=== PATIENT | female | born 1975 | race American Indian/Alaskan Native ===

== ENCOUNTER 2017-04-12 14:10 | Observation (INO) | payer BC, MEDICAID ==
[2017-04-12 14:32] VITALS: BMI 28.7
--- NOTE | 2017-04-12 14:49 | ED PDOC ---
Arrival/HPI - General Chief Complaint: Dizziness/Lightheaded Time Seen by Provider: 04/12/17 14:40 - History of Present Illness Narrative History of Present Illness (Text): 41 y/o F c PMHx iron deficiency anemia p/w weakness x weeks. Patient states she has felt lightheaded and weak with "slowness" of vision. She states the symptoms worsened after her normal menstrual period last week. She denies any other bleeding, black stool, or vomiting. She denies pain, fever, dyspnea. She had a blood transfusion in the past about 2 years ago. She denies any spinning or room spinning sensation. Past Medical History - Infectious Disease Hx of Infectious Diseases: None - Past Medical History Past Medical History: No Previous - Cardiac Hx Cardiac Disorders: No - Pulmonary Hx Respiratory Disorders: No Hx Pulmonary Embolism: Yes - Neurological Hx Neurological Disorder: Yes Hx Vertigo: Yes - Hematological/Oncological Hx Anemia: Yes - Psychiatric Hx Psychophysiologic Disorder: No Hx Substance Use: Yes (Marijuana) - Past Surgical History Past Surgical History: No Previous - Anesthesia Hx Anesthesia: No - Suicidal Assessment Feels Threatened In Home Enviroment: No Family/Social History - Physician Review Nursing Documentation Reviewed: Yes Family/Social History: No Known Family HX Smoking Status: Current Some Days Smoker Hx Alcohol Use: No Hx Substance Use: Yes (Marijuana) Hx Substance Use Treatment: No Allergies/Home Meds Allergies/Adverse Reactions: Allergies iodine Allergy (Verified 04/12/17 14:39) NAUSEA Home Medications: Home Meds Medication Instructions Recorded Confirmed No Known Home Med 04/12/17 04/12/17 Review of Systems - Physician Review All systems were reviewed & negative as marked: Yes - Review of Systems Constitutional: absent: Fevers Respiratory: absent: SOB Cardiovascular: absent: Chest Pain Physical Exam - Physical Exam Narrative Physical Exam (Text): Constitutional: No acute distress. Head: Normocephalic. Atraumatic. Eyes: PERRL. ENT: Moist mucous membranes. Neck: Supple. Cardiovascular: Regular rate. Radial pulses 2+ bilaterally. Capillary refill < 2 seconds. Chest: No tenderness. Respiratory: Clear to auscultation bilaterally. GI: Soft. Nontender. Nondistended. Back: No CVA tenderness. Musculoskeletal: No swelling or tenderness. Skin: No rash. (Partner states "a little pale") Neurologic: Alert, no focal deficit. Vital Signs Temp Pulse Resp BP Pulse Ox 04/12/17 14:10 98.7 F 67 18 115/81 99 Medical Decision Making ED Course and Treatment: Likely anemia, will check hemoglobin. Patient with history of iron deficiency anemia, will require follow up with her PMD for further management. 04/12/17 16:32 Patient consented for blood transfusion. Requires transfusion due to symptomatic anemia. Dr. Barakat accepts patient to hospitalist service under observation. - Lab Interpretations Lab Results: 04/12/17 14:35 04/12/17 14:35 Lab Results 04/12/17 15:42: Blood Type A POSITIVE, Antibody Screen Negative, BBK History Checked No verified bt 04/12/17 15:42: Urine Color Light yellow, Urine Appearance Clear, Urine pH 8.0, Ur Specific [place] 1.020, Urine Protein Negative, Urine Glucose (UA) Negative, Urine Ketones Negative, Urine Blood Negative, Urine Nitrate Negative, Urine Bilirubin Negative, Urine Urobilinogen 1.0 H, Ur Leukocyte Esterase Negative, Urine HCG, Qual Negative 04/12/17 14:35: Beta HCG, Quant < 2.39 04/12/17 14:35: Sodium 138, Potassium 4.0, Chloride 106, Carbon Dioxide 28, Anion Gap 8 L, BUN 14, Creatinine 0.7, Est GFR ( Amer) > 60, Est GFR (Non -Af Amer) > 60, Random Glucose 81, Calcium 8.6, Total Bilirubin 0.4, AST 30, ALT 28, Alkaline Phosphatase 49, Total Protein 6.9, Albumin 3.6, Globulin 3.3, Albumin/Globulin Ratio 1.1 04/12/17 14:35: PT 11.5, INR 1.06, APTT 24.3 04/12/17 14:35: WBC 5.6, RBC 3.83, Hgb 7.3 L, Hct 26.2 L, MCV 68.4 L, MCH 19.1 L , MCHC 27.9 L, RDW 18.7 H, Plt Count 363, MPV 9.1, Gran % 57.5, Lymph % (Auto) 32.2, [place] % (Auto) 8.6 H, Eos % (Auto) 1.3 L, Baso % (Auto) 0.4, Gran # 3.22, Lymph # 1.8, Rush # 0.5, Eos # 0.1, Baso # 0.02 Disposition/Present on Arrival - Present on Arrival Any Indicators Present on Arrival: No History of DVT/PE: No History of Uncontrolled Diabetes: No Urinary Catheter: No History of Decub. Ulcer: No History Surgical Site Infection Following: None - Disposition Have Diagnosis and Disposition been Completed?: Yes Diagnosis: Symptomatic anemia Disposition: HOSPITALIZED Disposition Time: 16:32 Patient Plan: Observation Condition: STABLE
[2017-04-12 15:23] LABS: ADD MANUAL DIFF? NO
[2017-04-12 15:42] LABS: ALB/GLOB RATIO 1.1 (1.1-1.8); ALKALINE PHOSPHATASE 49 U/L (38-133); ALT/SGPT 28 U/L (7-56); AST/SGOT 30 U/L (15-39); BASO # 0.02 K/mm3 (0.0-2.0); BASO % 0.4 % (0.0-3.0); BILIRUBIN,TOTAL 0.4 mg/dL (0.2-1.3); BLOOD UREA NITROGEN 14 mg/dL (7-21); CALCIUM 8.6 mg/dL (8.4-10.5); CARBON DIOXIDE 28 mmol/L (21-33); CHLORIDE 106 mmol/L (98-107); EOS # 0.1 (0.0-0.7); EOS % 1.3 % (1.5-5.0); GFR AFRICAN-AMERICAN > 60; GLUCOSE,RANDOM 81 mg/dL (70-110); GRAN # 3.22 (1.4-6.5); GRAN % 57.5 % (50.0-68.0); HEMATOCRIT 26.2 % (36.0-48.0); INR 1.06 (0.93-1.08); LYMPH # 1.8 (1.2-3.4); LYMPH % 32.2 % (22.0-35.0); MEAN CELL VOLUME 68.4 fL (80.0-105.0); MEAN CORPUSCULAR HEMOGLOBIN 19.1 pg (25.0-35.0); MEAN CORPUSCULAR HGB CONC 27.9 g/dl (31.0-37.0); MEAN PLATELET VOLUME 9.1 fl (7.0-11.0); MONO # 0.5 (0.1-0.6); MONO % 8.6 % (1.0-6.0); PARTIAL THROMBOPLASTIN TIME 24.3 Seconds (23.7-30.8); PLATELET COUNT 363 10^3/uL (120.0-450.0); RED CELL DISTRIBUTION WIDTH 18.7 % (11.5-14.5); SODIUM 138 mmol/L (132-148); TOTAL PROTEIN 6.9 g/dL (5.8-8.3); WHITE BLOOD COUNT 5.6 10^3/ul (4.5-11.0)
[2017-04-12 15:53] LABS: URINE APPEARANCE CLEAR (CLEAR); URINE BILIRUBIN NEGATIVE (NEGATIVE); URINE BLOOD NEGATIVE (NEGATIVE); URINE COLOR LIGHT YELLOW (YELLOW); URINE GLUCOSE (UA) NEGATIVE (NEGATIVE); URINE KETONE NEGATIVE (NEGATIVE); URINE LEUKOCYTE ESTERASE NEGATIVE Leu/uL (NEGATIVE); URINE PROTEIN NEGATIVE mg/dL (<30 mg/dL)
--- NOTE | 2017-04-12 18:22 | CP.PCM.HP ---
<Shakira Strong - Last Filed: 04/12/17 18:16> History of Present Illness - History of Present Illness History of Present Illness: CC: lightheadedness and weakness 41 year old female with past medical history of irono deficiency anemia and PE in 2002 treated with anticoags for about 2 months presents with lightheadedness and, HAN and SOB that began yesterday. Patient states that she has history of lightheadedness but last night she felt worse. Patient denies having any N/V, fevers or chills. Patient states that in the past she used to receive iron transfusions and used to take iron supplements but does not anymore. Patient states that she occasionally has heavy menstrual periods. LMP was on 04/04 and lasted about 5 days. Her period was 1 week early. Normally she gets periods every 28 days and last about 5-7 days. Patient is with a miscarriage about 2 years ago. Her 1st was uneventful and was vaginal delivery. Unsure about STD history. Patient had PE in past. She states that she was told it was due to taking OCPs. She denied smoking at that time. She denies having any CP, SOB abd pain, N/V/d/C, dysuria, hematuria, blood in stool, f/c. PMHx: stated above Sx: lap band Allergies: iodine contrast (nausea) Social: Denies tobacco or drug use. Drink ETOH occasionally Meds: none Present on Admission - Present on Admission Any Indicators Present on Admission: Yes History of DVT/PE: Yes Review of Systems - Review of Systems All systems: reviewed and no additional remarkable complaints except Past Patient History - Infectious Disease Hx of Infectious Diseases: None - Past Social History Smoking Status: Current Some Days Smoker Alcohol: Occasional Drugs: Denies Home Situation {Lives}: With Family - CARDIAC Hx Cardiac Disorders: No - PULMONARY Hx Respiratory Disorders: No Hx Pulmonary Embolism: Yes - NEUROLOGICAL Hx Neurological Disorder: Yes Hx Vertigo: Yes - HEMATOLOGICAL/ONCOLOGICAL Hx Anemia: Yes - PSYCHIATRIC Hx Psychophysiologic Disorder: No Hx Substance Use: Yes (Marijuana) - SURGICAL HISTORY Hx Surgeries: No - ANESTHESIA Hx Anesthesia: No Meds Allergies/Adverse Reactions: Allergies Allergy/AdvReac Type Severity Reaction Status Date / Time iodine Allergy NAUSEA Verified 04/12/17 14:39 Physical Exam - Constitutional Appears: Non-toxic, No Acute Distress - Head Exam Head Exam: ATRAUMATIC - Eye Exam Eye Exam: EOMI - ENT Exam ENT Exam: Mucous Membranes Moist - Respiratory Exam Respiratory Exam: Clear to Auscultation Bilateral, NORMAL BREATHING PATTERN. absent: Accessory Muscle Use, Rales, Rhonchi, Wheezes, Respiratory Distress - Cardiovascular Exam Cardiovascular Exam: REGULAR RHYTHM, +S1, +S2. absent: Diastolic murmur, Gallop , Rubs, Systolic Murmur - GI/Abdominal Exam GI & Abdominal Exam: Normal Bowel Sounds, Soft. absent: Distended, Firm, Guarding, Rigid, Tenderness - Extremities Exam Extremities exam: Negative for: pedal edema, tenderness - Neurological Exam Neurological exam: Alert, Oriented x3 - Psychiatric Exam Psychiatric exam: Normal Affect, Normal Mood - Skin Skin Exam: Dry, Intact, Normal Color, Warm Results - Vital Signs Recent Vital Signs: Last Vital Signs Temp 98.7 F 04/12/17 14:10 Pulse 67 04/12/17 14:10 Resp 18 04/12/17 14:10 BP 115/81 04/12/17 14:10 Pulse Ox 99 04/12/17 14:10 - Labs Result Diagrams: 04/12/17 14:35 04/12/17 14:35 Labs: Laboratory Results - last 24 hr 04/12/17 16:56 Blood Type Confirm A POSITIVE Assessment & Plan - Assessment and Plan (Free Text) Assessment: 41 year old female with past medical history of iron deficiency anemia and PE in 2002 is admitted for symptomatic anemia. On blood work, hgb is 7.3, MCV is 68.4. Symptomatic microcytic anemia - Will order iron studies, vit b12 and folate - Received consent for transfusion from pt. - Will transfuse 2 units of PRBC - Will get CXR - Will repeat CBC in am - Will check orthostatic vital signs - will get CT scan and transvag US to r/o any pelvic or intra-abd Prophylaxis -pepcid -scds Case discussed with attending, Dr. Barakat - Date & Time Date: 04/12/17 Time: 18:24 <Piot Barakat - Last Filed: 04/13/17 06:57> Results - Vital Signs Recent Vital Signs: Last Vital Signs Temp 98.5 F 04/13/17 02:09 Pulse 59 L 04/13/17 02:09 Resp 20 04/13/17 02:09 BP 124/89 04/13/17 02:09 Pulse Ox 99 04/12/17 14:10 - Labs Result Diagrams: 04/12/17 14:35 04/12/17 14:35 Labs: Laboratory Results - last 24 hr 04/12/17 16:56 Blood Type Confirm A POSITIVE Attending/Attestation - Attestation I have personally seen and examined this patient.: Yes I have fully participated in the care of the patient.: Yes I have reviewed all pertinent clinical information: Yes Notes (Text): 04/12/17 41 year old female with past medical history of chronic iron deficiency anemia with history of heavy menses at times presents with dizziness and dyspnea likely secondary to symptomatic anemia. Also complains of mild lower abdominal pain which she relates to history of fibroids. She was found to have microcytic anemia with hemoglobin of 7.3. Will order for anemia workup and prbc transfusion. CT abd/pelvis and transvaginal US are also ordered. Orthostatics and CXR were also requested. Pito Barakat MD Hospitalist.
[2017-04-12] MEDS ORDERED: Pneumococcal 23-Valent Vaccine IM ONE (19:58)
[2017-04-13] MEDS ORDERED: Pantoprazole 40 mg EC Tab PO SCH (06:30)
[2017-04-13 10:32] LABS: HEMATOCRIT 32.4 % (36.0-48.0); MEAN CELL VOLUME 70.3 fL (80.0-105.0); MEAN CORPUSCULAR HEMOGLOBIN 20.4 pg (25.0-35.0); MEAN PLATELET VOLUME 8.9 fl (7.0-11.0); RED CELL DISTRIBUTION WIDTH 19.7 % (11.5-14.5); WHITE BLOOD COUNT 5.7 10^3/ul (4.5-11.0)
--- NOTE | 2017-04-13 10:38 | RAD ---
HISTORY: dyspnea COMPARISON: No prior. FINDINGS: LUNGS: No active pulmonary disease. PLEURA: No significant pleural effusion identified, no pneumothorax apparent. CARDIOVASCULAR: Normal. OSSEOUS STRUCTURES: No significant abnormalities. VISUALIZED UPPER ABDOMEN: Normal. OTHER FINDINGS: None. IMPRESSION: No active disease.
[2017-04-13 10:47] LABS: BLOOD UREA NITROGEN 14 mg/dL (7-21); CALCIUM 8.7 mg/dL (8.4-10.5); CARBON DIOXIDE 25 mmol/L (21-33); CHLORIDE 105 mmol/L (95-110); GFR AFRICAN-AMERICAN > 60; GLUCOSE,RANDOM 110 mg/dL (70-110); POTASSIUM 3.7 mmol/L (3.6-5.0); SODIUM 138 mmol/L (132-148)
[2017-04-13 10:56] LABS: IRON 57 ug/dL (45-180)
[2017-04-13 12:00] LABS: IRON 18 ug/dL (45-180)
--- NOTE | 2017-04-13 15:01 | US ---
PROCEDURE: HISTORY: RLQ pain COMPARISON: TECHNIQUE: FINDINGS: The uterus measures 11.4 x 8.0 x 8.4 centimeters. Endometrium measures 4 millimeters. There is an anterior leiomyoma measuring 5.7 centimeters. The right ovary measures 3.4 x 3.2 centimeters. Left measures 3.8 x 2.8 centimeters. There is a 1.7 centimeter internal follicle. There is no free fluid the pelvis. Impression anterior leiomyoma otherwise unremarkable pelvic ultrasound. IMPRESSION:
--- NOTE | 2017-04-13 15:32 | CT ---
PROCEDURE: CT Abdomen and Pelvis without intravenous contrast HISTORY: RLQ pain COMPARISON: None. TECHNIQUE: Without contrast.. Contrast Dose: Radiation dose: Total exam DLP = 536 mGy-cm. This CT exam was performed using one or more of the following dose reduction techniques: Automated exposure control, adjustment of the mA and/or kV according to patient size, and/or use of iterative reconstruction technique. FINDINGS: LOWER THORAX: Multiple suture lines are seen in the stomach. LIVER: Unremarkable. No gross lesion or ductal dilatation. GALLBLADDER AND BILE DUCTS: Unremarkable. PANCREAS: Unremarkable. No gross lesion or ductal dilatation. SPLEEN: Unremarkable. ADRENALS: Unremarkable. No mass. KIDNEYS AND URETERS: Unremarkable. No hydronephrosis. No solid mass. VASCULATURE: Unremarkable. No aortic aneurysm. BOWEL: Unremarkable. No obstruction. No gross mural thickening. APPENDIX: Unremarkable. Normal appendix. PERITONEUM: Unremarkable. No free fluid. No free air. LYMPH NODES: Unremarkable. No enlarged lymph nodes. BLADDER: Unremarkable. REPRODUCTIVE: Unremarkable. BONES: No acute fracture. OTHER FINDINGS: None. IMPRESSION: No acute finding
[2017-04-13 17:26] LABS: FOLATE > 20.0 ng/mL
[2017-04-13 18:30] VITALS: BP 123/73; PULSE 67; RESP 20; TEMP 97.7; O2SAT 95
--- NOTE | 2017-04-13 19:53 | CP.PCM.DIS ---
<Mick Dang - Last Filed: 04/18/17 16:36> Provider - Provider Date of Admission: 04/12/17 16:41 Attending physician: Pito Barakat MD Time Spent in preparation of Discharge (in minutes): 45 Hospital Course - Lab Results Lab Results: Most Recent Lab Values WBC 5.7 10^3/ul (4.5-11.0) 04/13/17 10:10 RBC 4.61 10^6/uL (3.5-6.1) 04/13/17 10:10 Hgb 9.4 gm/dL (12.0-16.0) L 04/13/17 10:10 Hct 32.4 % (36.0-48.0) L 04/13/17 10:10 MCV 70.3 fL (80.0-105.0) L 04/13/17 10:10 MCH 20.4 pg (25.0-35.0) L 04/13/17 10:10 MCHC 29.0 g/dl (31.0-37.0) L 04/13/17 10:10 RDW 19.7 % (11.5-14.5) H 04/13/17 10:10 Plt Count 338 10^3/uL (120.0-450.0) 04/13/17 10:10 MPV 8.9 fl (7.0-11.0) 04/13/17 10:10 Gran % 57.5 % (50.0-68.0) 04/12/17 14:35 Lymph % (Auto) 32.2 % (22.0-35.0) 04/12/17 14:35 Petroleum % (Auto) 8.6 % (1.0-6.0) H 04/12/17 14:35 Eos % (Auto) 1.3 % (1.5-5.0) L 04/12/17 14:35 Baso % (Auto) 0.4 % (0.0-3.0) 04/12/17 14:35 Gran # 3.22 (1.4-6.5) 04/12/17 14:35 Lymph # 1.8 (1.2-3.4) 04/12/17 14:35 Petroleum # 0.5 (0.1-0.6) 04/12/17 14:35 Eos # 0.1 (0.0-0.7) 04/12/17 14:35 Baso # 0.02 K/mm3 (0.0-2.0) 04/12/17 14:35 PT 11.5 Seconds (9.9-11.8) 04/12/17 14:35 INR 1.06 (0.93-1.08) 04/12/17 14:35 APTT 24.3 Seconds (23.7-30.8) 04/12/17 14:35 Sodium 138 mmol/L (132-148) 04/13/17 10:10 Potassium 3.7 mmol/L (3.6-5.0) 04/13/17 10:10 Chloride 105 mmol/L (95-110) 04/13/17 10:10 Carbon Dioxide 25 mmol/L (21-33) 04/13/17 10:10 Anion Gap 12 (10-20) 04/13/17 10:10 BUN 14 mg/dL (7-21) 04/13/17 10:10 Creatinine 0.7 mg/dL (0.5-1.4) 04/13/17 10:10 Est GFR ( Amer) > 60 04/13/17 10:10 Est GFR (Non-Af Amer) > 60 04/13/17 10:10 Random Glucose 110 mg/dL (70-110) 04/13/17 10:10 Calcium 8.7 mg/dL (8.4-10.5) 04/13/17 10:10 Iron 57 ug/dL (45-180) 04/13/17 10:10 TIBC 486 ug/dL (265-497) 04/13/17 10:10 % Saturation 12 % (20-55) L 04/13/17 10:10 Ferritin 5.1 ng/mL 04/13/17 10:10 Total Bilirubin 0.4 mg/dL (0.2-1.3) 04/12/17 14:35 AST 30 U/L (15-39) 04/12/17 14:35 ALT 28 U/L (7-56) 04/12/17 14:35 Alkaline Phosphatase 49 U/L (38-133) 04/12/17 14:35 Total Protein 6.9 g/dL (5.8-8.3) 04/12/17 14:35 Albumin 3.6 g/dL (3.0-4.8) 04/12/17 14:35 Globulin 3.3 gm/dL 04/12/17 14:35 Albumin/Globulin Ratio 1.1 (1.1-1.8) 04/12/17 14:35 Vitamin B12 229 pg/mL (239-931) L 04/13/17 10:10 Folate 10.0 ng/mL 04/13/17 10:10 Beta HCG, Quant < 2.39 mIU/mL (0-6.15) 04/12/17 14:35 Urine Color Light yellow (YELLOW) 04/12/17 15:42 Urine Appearance Clear (CLEAR) 04/12/17 15:42 Urine pH 8.0 (4.7-8.0) 04/12/17 15:42 Ur Specific [place] 1.020 (1.005-1.035) 04/12/17 15:42 Urine Protein Negative mg/dL (<30 mg/dL) 04/12/17 15:42 Urine Glucose (UA) Negative mg/dL (NEGATIVE) 04/12/17 15:42 Urine Ketones Negative mg/dL (NEGATIVE) 04/12/17 15:42 Urine Blood Negative (NEGATIVE) 04/12/17 15:42 Urine Nitrate Negative (NEGATIVE) 04/12/17 15:42 Urine Bilirubin Negative (NEGATIVE) 04/12/17 15:42 Urine Urobilinogen 1.0 E.U./dL (<1 E.U./dL) H 04/12/17 15:42 Ur Leukocyte Esterase Negative Ashwini/uL (NEGATIVE) 04/12/17 15:42 Urine HCG, Qual Negative (NEGATIVE) 04/12/17 15:42 Blood Type A POSITIVE 04/12/17 15:42 Blood Type Confirm A POSITIVE 04/12/17 16:56 Antibody Screen Negative 04/12/17 15:42 Crossmatch See Detail 04/12/17 15:42 BBK History Checked No verified bt 04/12/17 15:42 - Hospital Course Hospital Course: Upon Admission: 41yo F with PMHx of Iron-Deficiency Anemia, PE in 2002, here for evaluation of lightheadedness, Headache, SOB. She states that she normally has regular periods with occasional heavy periods. LMP was 5/17, lasted for 5 days, was 1 week early and heavier than usual. She also c/o mild lower abdominal pain. CT abd/pelvis was obtained, no acute findings were founds. Transvaginal US obtained which showed 5.7cm anterior leiomyoma. Patient was found to have microcytic anemia with Hb of 7.3. Patient was given 2U PRBCs and started on iron supplements. Patient's status improved, and patient was cleared to be discharged home with close out-patient follow up with her PMD. Patient understands and agrees with plan. 1. Symptomatic anemia; received 2U prbc; secondary to heavy menses; Iron supplements 2. Constipation; Colace prn Upon Discharge: Patient is cleared for discharge as per Dr. Barakat 1. Follow up with your primary care physician within 3 days. 2. Follow up with your geek squad manager within one week. 3. Take new meds as directed 4. Return to the ER with any concerning symptoms. New Prescriptions: Ferrous Sulfate 324mg PO TID #90/0 Colace 100mg PO BID #60/0 Discharge Exam - Head Exam Head Exam: ATRAUMATIC, NORMAL INSPECTION, NORMOCEPHALIC - Eye Exam Eye Exam: EOMI, Normal appearance, PERRL. absent: Scleral icterus Pupil Exam: PERRL - ENT Exam ENT Exam: Mucous Membranes Moist - Respiratory Exam Respiratory Exam: Clear to PA & Lateral, NORMAL BREATHING PATTERN, UNREMARKABLE. absent: Accessory Muscle Use, Decreased Breath Sounds, Rhonchi, Wheezes, Respiratory Distress - Cardiovascular Exam Cardiovascular Exam: RRR, +S1, +S2. absent: JVD - GI/Abdominal Exam GI & Abdominal Exam: Normal Bowel Sounds, Soft. absent: Distended, Guarding, Hernia, Rebound, Rigid, Tenderness - Extremities Exam Extremities exam: normal inspection - Back Exam Back exam: NORMAL INSPECTION - Neurological Exam Neurological exam: Alert, Oriented x3 - Psychiatric Exam Psychiatric exam: Normal Affect, Normal Mood - Skin Skin Exam: Dry, Intact, Normal Color, Warm Discharge Plan - Discharge Medications Prescriptions: Docusate Sodium [Colace] 100 mg PO BID #60 capsule Ferrous Sulfate [Feosol] 324 mg PO TID #90 ect - Follow Up Plan Condition: STABLE Disposition: HOME/ ROUTINE Instructions: Anemia (DC), Back Pain (GEN), Hip Pain (GEN) Additional Instructions: Patient is cleared for discharge as per Dr. Barakat 1. Follow up with your primary care physician within 3 days. 2. Follow up with you geek squad manager within one week. 3. Take new meds as directed 4. Return to the ER with any concerning symptoms. New Prescriptions: Ferrous Sulfate 324mg PO TID #90/0 Colace 100mg PO BID #60/0 <Pito Baraakt - Last Filed: 04/18/17 18:29> Provider - Provider Date of Admission: 04/12/17 16:41 Attending physician: Pito Barakat MD Hospital Course - Lab Results Lab Results: Most Recent Lab Values WBC 5.7 10^3/ul (4.5-11.0) 04/13/17 10:10 RBC 4.61 10^6/uL (3.5-6.1) 04/13/17 10:10 Hgb 9.4 gm/dL (12.0-16.0) L 04/13/17 10:10 Hct 32.4 % (36.0-48.0) L 04/13/17 10:10 MCV 70.3 fL (80.0-105.0) L 04/13/17 10:10 MCH 20.4 pg (25.0-35.0) L 04/13/17 10:10 MCHC 29.0 g/dl (31.0-37.0) L 04/13/17 10:10 RDW 19.7 % (11.5-14.5) H 04/13/17 10:10 Plt Count 338 10^3/uL (120.0-450.0) 04/13/17 10:10 MPV 8.9 fl (7.0-11.0) 04/13/17 10:10 Gran % 57.5 % (50.0-68.0) 04/12/17 14:35 Lymph % (Auto) 32.2 % (22.0-35.0) 04/12/17 14:35 [place] % (Auto) 8.6 % (1.0-6.0) H 04/12/17 14:35 Eos % (Auto) 1.3 % (1.5-5.0) L 04/12/17 14:35 Baso % (Auto) 0.4 % (0.0-3.0) 04/12/17 14:35 Gran # 3.22 (1.4-6.5) 04/12/17 14:35 Lymph # 1.8 (1.2-3.4) 04/12/17 14:35 [place] # 0.5 (0.1-0.6) 04/12/17 14:35 Eos # 0.1 (0.0-0.7) 04/12/17 14:35 Baso # 0.02 K/mm3 (0.0-2.0) 04/12/17 14:35 PT 11.5 Seconds (9.9-11.8) 04/12/17 14:35 INR 1.06 (0.93-1.08) 04/12/17 14:35 APTT 24.3 Seconds (23.7-30.8) 04/12/17 14:35 Sodium 138 mmol/L (132-148) 04/13/17 10:10 Potassium 3.7 mmol/L (3.6-5.0) 04/13/17 10:10 Chloride 105 mmol/L (95-110) 04/13/17 10:10 Carbon Dioxide 25 mmol/L (21-33) 04/13/17 10:10 Anion Gap 12 (10-20) 04/13/17 10:10 BUN 14 mg/dL (7-21) 04/13/17 10:10 Creatinine 0.7 mg/dL (0.5-1.4) 04/13/17 10:10 Est GFR ( Amer) > 60 04/13/17 10:10 Est GFR (Non-Af Amer) > 60 04/13/17 10:10 Random Glucose 110 mg/dL (70-110) 04/13/17 10:10 Calcium 8.7 mg/dL (8.4-10.5) 04/13/17 10:10 Iron 57 ug/dL (45-180) 04/13/17 10:10 TIBC 486 ug/dL (265-497) 04/13/17 10:10 % Saturation 12 % (20-55) L 04/13/17 10:10 Ferritin 5.1 ng/mL 04/13/17 10:10 Total Bilirubin 0.4 mg/dL (0.2-1.3) 04/12/17 14:35 AST 30 U/L (15-39) 04/12/17 14:35 ALT 28 U/L (7-56) 04/12/17 14:35 Alkaline Phosphatase 49 U/L (38-133) 04/12/17 14:35 Total Protein 6.9 g/dL (5.8-8.3) 04/12/17 14:35 Albumin 3.6 g/dL (3.0-4.8) 04/12/17 14:35 Globulin 3.3 gm/dL 04/12/17 14:35 Albumin/Globulin Ratio 1.1 (1.1-1.8) 04/12/17 14:35 Vitamin B12 229 pg/mL (239-931) L 04/13/17 10:10 Folate 10.0 ng/mL 04/13/17 10:10 Beta HCG, Quant < 2.39 mIU/mL (0-6.15) 04/12/17 14:35 Urine Color Light yellow (YELLOW) 04/12/17 15:42 Urine Appearance Clear (CLEAR) 04/12/17 15:42 Urine pH 8.0 (4.7-8.0) 04/12/17 15:42 Ur Specific [place] 1.020 (1.005-1.035) 04/12/17 15:42 Urine Protein Negative mg/dL (<30 mg/dL) 04/12/17 15:42 Urine Glucose (UA) Negative mg/dL (NEGATIVE) 04/12/17 15:42 Urine Ketones Negative mg/dL (NEGATIVE) 04/12/17 15:42 Urine Blood Negative (NEGATIVE) 04/12/17 15:42 Urine Nitrate Negative (NEGATIVE) 04/12/17 15:42 Urine Bilirubin Negative (NEGATIVE) 04/12/17 15:42 Urine Urobilinogen 1.0 E.U./dL (<1 E.U./dL) H 04/12/17 15:42 Ur Leukocyte Esterase Negative Ashwini/uL (NEGATIVE) 04/12/17 15:42 Urine HCG, Qual Negative (NEGATIVE) 04/12/17 15:42 Blood Type A POSITIVE 04/12/17 15:42 Blood Type Confirm A POSITIVE 04/12/17 16:56 Antibody Screen Negative 04/12/17 15:42 Crossmatch See Detail 04/12/17 15:42 BBK History Checked No verified bt 04/12/17 15:42 Attending/Attestation - Attestation I have personally seen and examined this patient.: Yes I have fully participated in the care of the patient.: Yes I have reviewed all pertinent clinical information, including history, physical exam and plan: Yes Notes (Text): 04/18/17 18:27 41 year old female with past medical history of chronic iron deficiency anemia with history of heavy menses at times presented with dizziness and dyspnea secondary to symptomatic anemia. She was found to have microcytic anemia with hemoglobin of 7.3. She received 2 units of prbc transfusion with improvement of hemoglobin and improvement of symptoms. CT abd/pelvis and transvaginal ultrasound were reviewed as above. Patient is discharged home to follow up with pmd. Follow up with synchronous motor assembler. Continue with iron supplements and close follow up with pmd and synchronous motor assembler. Pito Barakat MD Hospitalist.
== END 2017-04-13 18:39 | disposition home or self-care (01) ==
LOC: ED 14:10 → ERH 16:41 → 3RSO 20:10
PROVIDERS: ADMIT Internal Medicine; ATTEND Internal Medicine
DX: D50.9 Iron deficiency anemia, unspecified (principal); R10.30 Lower abdominal pain, unspecified; D21.9 Benign neoplasm of connective and other soft tissue, unspecified
CPT/HCPCS: 36415; 36430; 71010; 74176; 76830; 80048; 80053; 81003; 82607; 82728; 82746; 83540; 83550; 84702; 84703; 85025; 85027; 85610; 85730; 86850; 86900; 86920; 99285; G0378; P9016